=== PATIENT | female | born 1980 | race Caucasian/White ===

== ENCOUNTER → 2020-08-24 | Outpatient (CLI) | payer BC ==
[~2020-08-24] MED LIST: ANAPROX DS550 MG PO; ATIVAN1 MG PO; VICODIN 5/500 505 MG PO
== END | disposition home or self-care (01) ==
LOC: COVID19 16:22 → LAB 16:22
PROVIDERS: ATTEND Family Medicine
DX: R05 Cough (principal); R07.89 Other chest pain; Z20.828 Contact with and (suspected) exposure to other viral communicable diseases